=== PATIENT | female | born 1985 | race Caucasian/White ===

== ENCOUNTER → 2017-07-28 | Day surgery (SDC) | payer OTHER ==
[~2017-07-28] VITALS: Ht 170.2 cm; Wt 71.5 kg
[~2017-07-28] MED LIST: ACETAMINOPHEN 1000 MG/100 ML 100 ML IV SCH; BUPIVACAINE/EPINEPHRINE 0.25% 50 ML VIAL ONE; CHLORHEXIDINE GLUCONATE 2 % 1 PACK (2 CLOTHS) TOPICAL PRN; DEXAMETHASONE SOD PHOS 4 MG/ML VIAL IV ONE; DO NOT ADM ANY ANTICOAGULANT DRUGS PRN; GLYCOPYRROLATE 1 MG/5 ML SYRINGE IV PUSH ONE; INSULIN HUMAN REGULAR 1,000 UNITS/10 ML VIAL SQ PRN; KETOROLAC TROMETHAMINE 30 MG/ML (IVP) VIAL IV PUSH ONE; KETOROLAC TROMETHAMINE 30 MG/ML (IVP) VIAL ONE; LACTATED RINGER'S 1000 ML INJ 1,000 ML IV ONE; LACTATED RINGER'S 1000 ML IV PRN; LIDOCAINE HCL 1% PF 5 ML SYRINGE OTHER ONE; METOPROLOL TARTRATE 25 MG TAB PO PRN; MIDAZOLAM HCL 2 MG/2 ML VIAL ONE; MORPHINE SULFATE 4 MG/ML INJ IV PUSH PRN; NEOSTIGMINE 5 MG/5 ML SYRINGE IV PUSH ONE; ONDANSETRON HCL 4 MG/2 ML VIAL IV ONE; ONDANSETRON HCL 4 MG/2 ML VIAL IV PUSH PRN; POVIDONE IODINE 5% (ANTISEPSIS KIT) 4 APPLICATIONS EACH NARE PRN; PROPOFOL 200 MG/20 ML AMP IV ONE; ROCURONIUM INJ 50 MG/5 ML SYRINGE IV PUSH ONE; SODIUM CHLORID 0.9% 500 ML IV PRN; SODIUM CHLORIDE 0.9% FLUSH 10 ML FLUSH IV FLUSH PRN; SODIUM CHLORIDE 0.9% FLUSH 10 ML FLUSH IV FLUSH SCH; ceFAZolin 2 GM PREMIX 50 ML IV SCH; oxyCODONE/ACETAMINOPHEN 5 MG/325 MG TAB ONE; oxyCODONE/ACETAMINOPHEN 5 MG/325 MG TAB PO PRN
--- NOTE | 2017-07-28 11:49 | PD.OP ---
cc: Ochoa Valdez MD Operative Report Date of Surgery: Jul 28, 2017 Preoperative Diagnosis: Chronic cholecystitis and cholelithiasis Postoperative Diagnosis: Chronic cholecystitis and cholelithiasis Procedure: Laparoscopic cholecystectomy Anesthesia: General endotracheal Surgeon: Ochoa Valdez Qc Manager(s): Joy Carpenter, MS 3 Operation and Findings: Operative findings: The patient was found to have a slightly thick-walled, but relatively normal-appearing gallbladder. The cystic duct and common bile duct were seen to be of normal caliber. No other abnormalities were noted. Operative procedure: The patient was brought to the operating room and after satisfactory general endotracheal anesthesia obtained, the abdomen was prepped and draped in usual sterile fashion. 0.25% Marcaine with epinephrine was used to infiltrate the skin for local anesthesia. A small incision was made above the umbilicus and a 5 mm trocar was inserted into the peritoneal cavity under direct visualization. The abdomen was insufflated 15 mmHg using carbon dioxide. The camera was reinserted and visceral injury inspected for, with none being identified. Under direct visualization a 12 port and a 5 port were placed in the upper midline. The fundus of the gallbladder was identified grasped and retracted inferiorly and laterally by grasping Soto's pouch as well. Tension was thus placed on the hepatoduodenal ligament. The cystic duct and cystic artery were dissected free with minimal difficulty. Once the critical view had been obtained, the cystic artery was divided near structures with the gallbladder using the harmonic scalpel. Should be noted the patient had a very low takeoff of the right hepatic artery but the cystic artery was clear there was a posterior branch which was taken with a Harmonic scalpel as well. The cystic duct was then dissected down to the structure with the common bile duct which was clearly visualized. The cystic duct was divided near structures with the gallbladder using the harmonic scalpel. The gallbladder was then dissected free from the liver bed using the Harmonic. It was grasped and placed within an Endo Catch bag. It was brought through the upper midline incision where his entity of its contents withdrawn without problem. The liver bed was inspected and found be hemostatic. The area was irrigated with saline and again hemostasis checked for and found be satisfactory. The cystic duct and cystic artery stumps were both closely inspected and found to be intact with no leakage of bile or blood. Carbon dioxide was then vented as completely as possible the atmosphere, and the ports were removed. The 12 mm fascial defect was closed with a single 0 Vicryl suture. The's subcutaneous tissue and skin were closed with interrupted 4-0 PDS subcutaneous stitches. Steri-Strips were applied and patient was then awakened and taken from the operating room, in satisfactory condition, having tolerated the procedure without problem. Estimated blood loss was 10 mL's. The instrument, sponge, needle counts were reported as being correct 2 at the end of the procedure. Ochoa Valdez MD Jul 28, 2017 11:49
[2017-07-28 12:53] VITALS: TEMP 97.5
[2017-07-28 13:10] VITALS: BP 123/79; PULSE 69; RESP 18; O2SAT 100
== END | disposition home or self-care (01) ==
LOC: HSDC 07:39
PROVIDERS: ATTEND Surgery
DX: K80.10 Calculus of gallbladder with chronic cholecystitis without obstruction (principal); K76.0 Fatty (change of) liver, not elsewhere classified; J30.9 Allergic rhinitis, unspecified; H61.20 Impacted cerumen, unspecified ear; R79.89 Other specified abnormal findings of blood chemistry
CPT/HCPCS: 00790; 47562; 88304; J0131; J0690; J1100; J1885; J2250; J2405; J2710; J3010; J7120